=== PATIENT | female | born 1955 | race Caucasian/White ===

== ENCOUNTER 2018-12-01 12:50 | Emergency (ER) | payer SELFPAY ==
[2018-12-01] MEDS ORDERED: methylPREDNISolone Sodium Succinate 125 MG/2 ML SDV IVPUSH ONE (12:53)
[2018-12-01] MEDS ORDERED: Albuterol/Ipratropium 3.0-0.5 MG/3 ML Neb Soln NEB ONE (12:53)
[2018-12-01] MEDS ORDERED: Sodium Chloride 0.9% 1,000 ML IV SCH (13:00)
--- NOTE | 2018-12-01 15:06 | EDM.PDOC ---
ED HPI GENERAL MEDICAL PROBLEM - General Chief Complaint: Syncope Stated Complaint: SHORTNESS OF BREATH Time Seen by Provider: 12/01/18 15:04 Source of Information: Reports: Patient - History of Present Illness INITIAL COMMENTS - FREE TEXT/NARRATIVE: HISTORY AND PHYSICAL: History of present illness: A shunt had an episode of lightheadedness today, she states she nearly passed out as she was sitting on her bed she arrives by private vehicle in no distress alert interactive no current dizziness she does have some sinus tenderness right greater than left and history of poor dentition with a couple of teeth that need to be removed which would essentially be the last 2 teeth on her upper jawline No fever nausea vomiting chills sweats no chest pain shortness breath headache or palpitation no bowel or urine symptoms no current dizziness Review of systems: As per history of present illness and below otherwise all systems reviewed and negative. Past medical history: As per history of present illness and as reviewed below otherwise noncontributory. Surgical history: As per history of present illness and as reviewed below otherwise noncontributory. Social history: No reported history of drug or alcohol abuse. Family history: As per history of present illness and as reviewed below otherwise noncontributory. Physical exam: HEENT: Atraumatic, normocephalic, pupils reactive, negative for conjunctival pallor or scleral icterus, mucous membranes moist, throat clear, neck supple, nontender, trachea midline. Lungs: Clear to auscultation, breath sounds equal bilaterally, chest nontender. Heart: S1S2, regular, negative for clicks, rubs, or JVD. Abdomen: Soft, nondistended, nontender. Negative for masses or hepatosplenomegaly. Negative for costovertebral tenderness. Pelvis: Stable nontender. Genitourinary: Deferred. Rectal: Deferred. Extremities: Atraumatic, negative for cords or calf pain. Neurovascular unremarkable. Neuro: Awake, alert, oriented. Cranial nerves II through XII unremarkable. Cerebellum unremarkable. Motor and sensory unremarkable throughout. Exam nonfocal. Diagnostics: [CBC CMP UA d-dimer ] refused imaging of head CT and chest x-ray due to financial Therapeutics: Amoxil 875 by mouth twice a day #20 no refill Impression: [Anxiety about health Sinus infection] Our dentition Definitive disposition and diagnosis as appropriate pending reevaluation and review of above. headache Pain Score (Numeric/FACES): 4 - Related Data Allergies Allergy/AdvReac Type Severity Reaction Status Date / Time No Known Allergies Allergy Verified 12/01/18 12:57 Home Meds: Home Meds . [No Known Home Meds] 12/01/18 [History] Past Medical History - Past Health History Medical/Surgical History: Denies Medical/Surgical History Social & Family History - Family History Family Medical History: Noncontributory Other Dermatologic Family History: adopted - Tobacco Use Smoking Status *Q: Never Smoker - Recreational Drug Use Recreational Drug Use: No ED ROS GENERAL - Review of Systems Review Of Systems: See Below ED EXAM, GENERAL - Physical Exam Exam: See Below Course - Vital Signs Last Recorded V/S: Last Vital Signs Temp 97.2 F 12/01/18 12:55 Pulse 96 12/01/18 12:55 Resp 16 12/01/18 12:55 BP 153/88 H 12/01/18 12:55 Pulse Ox 96 12/01/18 12:55 - Orders/Labs/Meds Orders: Active Orders 24 hr Category Date Time Status EKG Documentation Completion [RC] STAT Care 12/01/18 12:54 Active Orthostatic Vital Signs [RC] ASDIRECTED Care 12/01/18 13:05 Active RT Aerosol Therapy [RC] ASDIRECTED Care 12/01/18 12:54 Inactive Chest 1V Frontal [CR] Stat Exams 12/01/18 12:53 Stop Req Head wo Cont [CT] Stat Exams 12/01/18 12:54 Stop Req B-TYPE NATRIURETIC PEPTIDE,BNP [CHEM] Stat Lab 12/01/18 13:20 Received COMPREHENSIVE METABOLIC PN,CMP [CHEM] Stat Lab 12/01/18 13:20 Received CULTURE BLOOD [BC] Stat Lab 12/01/18 13:20 Received CULTURE BLOOD [BC] Stat Lab 12/01/18 13:41 Received TROPONIN I [CHEM] Stat Lab 12/01/18 13:20 Received Sodium Chloride 0.9% [Normal Saline] 1,000 ml Med 12/01/18 13:00 Active IV STAT Blood Culture x2 Reflex Set [OM.PC] Stat Oth 12/01/18 12:53 Ordered Medication Orders Sodium Chloride (Normal Saline) 1,000 mls @ 125 mls/hr IV STAT PILY Last Admin: 12/01/18 13:15 Dose: 125 mls/hr Labs: Laboratory Tests 12/01/18 12/01/18 Range/Units 13:20 13:20 WBC 5.28 (4.0-11.0) K/uL RBC 5.24 (4.30-5.90) M/uL Hgb 14.9 (12.0-16.0) g/dL Hct 44.7 (36.0-46.0) % MCV 85.3 (80.0-98.0) fL MCH 28.4 (27.0-32.0) pg MCHC 33.3 (31.0-37.0) g/dL RDW Std Deviation 39.5 (28.0-62.0) fl RDW Coeff of Justo 13 (11.0-15.0) % Plt Count 283 (150-400) K/uL MPV 10.10 (7.40-12.00) fL Neut % (Auto) 53.7 (48.0-80.0) % Lymph % (Auto) 35.0 (16.0-40.0) % Stevens % (Auto) 8.9 (0.0-15.0) % Eos % (Auto) 1.5 (0.0-7.0) % Baso % (Auto) 0.9 (0.0-1.5) % Neut # (Auto) 2.8 (1.4-5.7) K/uL Lymph # (Auto) 1.9 (0.6-2.4) K/uL Stevens # (Auto) 0.5 (0.0-0.8) K/uL Eos # (Auto) 0.1 (0.0-0.7) K/uL Baso # (Auto) 0.1 (0.0-0.1) K/uL Nucleated RBC % 0.0 /100WBC Nucleated RBCs # 0 K/uL INR 1.02 D-Dimer, Quantitative 0.40 (0.0-0.50) mg/L FEU Meds: Medications Generic Name Dose Route Start Last Admin Trade Name Freq PRN Reason Stop Dose Admin Sodium Chloride 1,000 mls @ 125 mls/hr 12/01/18 13:00 12/01/18 13:15 Normal Saline IV 125 mls/hr STAT PILY Administration Discontinued Medications Generic Name Dose Route Start Last Admin Trade Name Freq PRN Reason Stop Dose Admin Albuterol/Ipratropium 3 ml 12/01/18 12:53 12/01/18 13:42 Duoneb 3.0-0.5 Mg/3 Ml NEB 12/01/18 12:54 Not Given ONETIME ONE Methylprednisolone Sodium Succinate 125 mg 12/01/18 12:53 12/01/18 13:09 Solu-Medrol IVPUSH 12/01/18 12:54 Not Given ONETIME ONE Departure - Departure Time of Disposition: 15:13 Disposition: Home, Self-Care 01 Condition: Good Clinical Impression: Sinusitis, Poor dentition - Discharge Information Referrals: PCP,None [Primary Care Provider] - Forms: ED Department Discharge Additional Instructions: Medication as prescribed Return if symptoms persist or worsen Follow-up primary care in 2 weeks sooner as needed Follow-up with dentist of choice for tooth removal as soon as possible [facility] [address] [place] [phone] The following information is given to patients seen in the emergency department who are being discharged to home. This information is to outline your options for follow-up care. We provide all patients seen in our emergency department with a follow-up referral. The need for follow-up, as well as the timing and circumstances, are variable depending upon the specifics of your emergency department visit. If you don't have a primary care physician on staff, we will provide you with a referral. We always advise you to contact your personal physician following an emergency department visit to inform them of the circumstance of the visit and for follow-up with them and/or the need for any referrals to a consulting specialist. The emergency department will also refer you to a specialist when appropriate. This referral assures that you have the opportunity for follow-up care with a specialist. All of these measure are taken in an effort to provide you with optimal care, which includes your follow-up. Under all circumstances we always encourage you to contact your private physician who remains a resource for coordinating your care. When calling for follow-up care, please make the office aware that this follow-up is from your recent emergency room visit. If for any reason you are refused follow-up, please contact the [facility] emergency department at and asked to speak to the emergency department charge nurse. - My Orders Last 24 Hours: My Active Orders 12/01/18 12:53 Chest 1V Frontal [CR] Stat Blood Culture x2 Reflex Set [OM.PC] Stat 12/01/18 12:54 EKG Documentation Completion [RC] STAT RT Aerosol Therapy [RC] ASDIRECTED Head wo Cont [CT] Stat 12/01/18 13:00 Sodium Chloride 0.9% [Normal Saline] 1,000 ml IV STAT 12/01/18 13:05 Orthostatic Vital Signs [RC] ASDIRECTED 12/01/18 13:20 B-TYPE NATRIURETIC PEPTIDE,BNP [CHEM] Stat COMPREHENSIVE METABOLIC PN,CMP [CHEM] Stat CULTURE BLOOD [BC] Stat TROPONIN I [CHEM] Stat 12/01/18 13:41 CULTURE BLOOD [BC] Stat - Assessment/Plan Last 24 Hours: My Active Orders 12/01/18 12:53 Chest 1V Frontal [CR] Stat Blood Culture x2 Reflex Set [OM.PC] Stat 12/01/18 12:54 EKG Documentation Completion [RC] STAT RT Aerosol Therapy [RC] ASDIRECTED Head wo Cont [CT] Stat 12/01/18 13:00 Sodium Chloride 0.9% [Normal Saline] 1,000 ml IV STAT 12/01/18 13:05 Orthostatic Vital Signs [RC] ASDIRECTED 12/01/18 13:20 B-TYPE NATRIURETIC PEPTIDE,BNP [CHEM] Stat COMPREHENSIVE METABOLIC PN,CMP [CHEM] Stat CULTURE BLOOD [BC] Stat TROPONIN I [CHEM] Stat 12/01/18 13:41 CULTURE BLOOD [BC] Stat
[2018-12-01 15:24] LABS: CHLORIDE,CL 104 mmol/L (98-107); SODIUM,NA 142 mmol/L (136-145)
== END 2018-12-01 15:49 | disposition home or self-care (01) ==
LOC: MW.ED 12:50
DX: J32.9 Chronic sinusitis, unspecified (principal); F41.9 Anxiety disorder, unspecified; K08.9 Disorder of teeth and supporting structures, unspecified
CPT/HCPCS: 80053; 83880; 84484; 85025; 85379; 85610; 87040; 93005; 96360; 96361; 99284; J7040; 99283